=== PATIENT | male | born 2000 | race African-American/Black ===

== ENCOUNTER 2020-01-21 08:11 | Emergency (ER) | payer MEDICAID, OTHER ==
[~2020-01-21] VITALS: Ht 198.1 cm; Wt 117.9 kg
[2020-01-21 08:19] VITALS: BP 141/91
== END 2020-01-21 09:48 | disposition home or self-care (01) ==
LOC: ER 08:11
DX: G44.209 Tension-type headache, unspecified, not intractable (principal)
CPT/HCPCS: 70450